=== PATIENT | female | born 1945 | race Caucasian/White ===

== ENCOUNTER 2018-01-06 20:26 | Inpatient (IN) | payer OTHER ==
[~2018-01-06] VITALS: Ht 170.2 cm; Wt 68.7 kg
[2018-01-06] MEDS ORDERED: SODIUM CHLORIDE 0.9% 500 ML IVB ONE (21:12)
[2018-01-06] MEDS ORDERED: HYDROmorphone HCL 2 MG/ML VL IV ONE (21:15)
[2018-01-06] MEDS ORDERED: ONDANSETRON HCL 4 MG/2 ML VIAL IV ONE (21:15)
[2018-01-06 22:08] LABS: Basophils # (auto) 0 uL; Eosinophils # (auto) 0.1 uL; Lymphocytes # (auto) 0.7 uL; Neutrophils # (auto) 2.8 uL; Platelet Count (auto) 163 10^3/uL (140-450); Red Blood Cells 4.41 10^6/uL (4.0-5.20)
[2018-01-06 22:09] LABS: Basophils % (auto) 0.9 % (0.0-2.0); Eosinophils % (auto) 2.4 % (0.0-7.0); Hematocrit 36.7 % (36.0-46.0); Hemoglobin 11.7 g/dL (12.2-16.2); Lymphocytes % (auto) 16.5 % (10.0-50.0); Mean Corpuscular Hemoglobin 26.6 pg (28.0-32.0); Mean Corpuscular Hgb Conc. 31.9 g/dL (32.0-36.0); Mean Corpuscular Volume 83.3 fL (80.0-100.0); Monocytes # (auto) 0.4 uL; Neutrophils % (auto) 70.2 % (37.0-80.0); Nucleated Red Blood Cells % 0.2 %
[2018-01-06 22:10] LABS: Red Cell Distribution Width 20.9 % (11.8-14.3)
[2018-01-06 22:20] LABS: INR 0.96 (0.9-1.15); Partial Thromboplastin Time 23.6 sec (23.78-33.04); Prothrombin Time 10.3 sec (9.27-12.13)
[2018-01-06 22:30] LABS: Albumin 3.2 g/dL (3.4-5.0); BUN/Creatinine Ratio 24.8; Bilirubin, Total 0.5 mg/dL (0.2-1.0); Calcium 8.7 mg/dL (8.5-10.1); Magnesium 2.1 mg/dL (1.6-2.6); Potassium 3.4 mmol/L (3.5-5.1); Total Protein 6.3 g/dL (6.4-8.2)
[2018-01-07] MEDS ORDERED: TEMAZEPAM 15 MG CAP PO ONE (01:30)
[2018-01-07] MEDS ORDERED: ONDANSETRON HCL 4 MG/2 ML VIAL IV ONE ×2 (02:00→08:45)
[2018-01-07] MEDS ORDERED: HYDROmorphone HCL 2 MG/ML VL IV ONE (02:00)
[2018-01-07] MEDS ORDERED: LORazepam 0.5 MG TAB PO PRN (04:15)
[2018-01-07] MEDS ORDERED: ACETAMINOPHEN 500 MG TAB PO PRN (04:15)
[2018-01-07] MEDS ORDERED: HYDROcodone-ACET 5/325MG TAB PO PRN (04:15)
[2018-01-07] MEDS ORDERED: cloNIDine HCL 0.1 MG TAB PO ONE (04:15)
[2018-01-07 07:54] LABS: Basophils # (auto) 0 uL; Eosinophils # (auto) 0.1 uL; Hemoglobin 9.9 g/dL (12.2-16.2); Lymphocytes # (auto) 0.6 uL; Monocytes # (auto) 0.3 uL; Platelet Count (auto) 120 10^3/uL (140-450)
[2018-01-07 07:57] LABS: Basophils % (auto) 1.4 % (0.0-2.0); Eosinophils % (auto) 3.6 % (0.0-7.0); Hematocrit 30.7 % (36.0-46.0); Lymphocytes % (auto) 24.7 % (10.0-50.0); Mean Corpuscular Hemoglobin 26.8 pg (28.0-32.0); Mean Corpuscular Hgb Conc. 32.3 g/dL (32.0-36.0); Mean Corpuscular Volume 82.8 fL (80.0-100.0); Monocytes % (auto) 11.4 % (0.0-12.0); Neutrophils # (auto) 1.5 uL; Neutrophils % (auto) 58.9 % (37.0-80.0); Nucleated Red Blood Cells % 0.1 %; Red Blood Cells 3.71 10^6/uL (4.0-5.20); White Blood Cell 2.6 10^3/uL (4.4-10.8)
[2018-01-07 08:09] LABS: Red Cell Distribution Width 20.3 % (11.8-14.3)
[2018-01-07 08:10] LABS: BUN/Creatinine Ratio 31.3; Calcium 7.9 mg/dL (8.5-10.1); Potassium 3.4 mmol/L (3.5-5.1)
[2018-01-07] MEDS ORDERED: ONDANSETRON HCL 4 MG/2 ML VIAL ONE (08:38)
[2018-01-07] MEDS: HYDROmorphone HCL 2 MG/ML VL IV PRN ×3 (08:44→21:45)
[2018-01-07 09:46] VITALS: BP 121/86
[2018-01-07] MEDS ORDERED: ONDA-101 PO (10:31)
[2018-01-07] MEDS ORDERED: HYDR-3546 OR (10:31)
[2018-01-07] MEDS ORDERED: DIAZ2TAB PO (10:31)
[2018-01-07] MEDS ORDERED: HYDR-4683 PO (10:31)
[2018-01-07] MEDS ORDERED: ASPI81TA27 PO (10:31)
[2018-01-07] MEDS ORDERED: HYDR2TAB58 PO (10:31)
[2018-01-07] MEDS ORDERED: CAR125T OR (10:31)
[2018-01-07] MEDS ORDERED: TEMA30CA PO (10:31)
[2018-01-07] MEDS ORDERED: SERT25TA84 PO (10:31)
[2018-01-07 10:47] LABS: Urine Bacteria NONE SEEN /hpf (None Seen); Urine Blood Negative /uL (Negative); Urine Specific Gravity 1.016 (1.001-1.035); Urine WBC 1 /hpf (0 - 5)
[2018-01-07 12:28] VITALS: BP 149/78
[2018-01-07] MEDS ORDERED: ONDANSETRON HCL 4 MG/2 ML VIAL IV PRN (15:00)
[2018-01-07] MEDS ORDERED: POTASSIUM CHL 20 Meq TABLET PO ONE (15:00)
[2018-01-07 16:10] VITALS: BP 147/88
[2018-01-07 22:00] VITALS: BP 151/80
[2018-01-07] MEDS ORDERED: cloNIDine HCL 0.1 MG TAB PO PRN (22:45)
[2018-01-07] MEDS ORDERED: CARVEDILOL 12.5 MG TAB PO ONE (23:15)
[2018-01-08] MEDS: TEMAZEPAM 15 MG CAP PO PRN ×2 (00:36→23:53)
[2018-01-08] MEDS: HYDROmorphone HCL 2 MG/ML VL IV PRN ×5 (01:25→23:52)
[2018-01-08 05:34] VITALS: BP 123/81
[2018-01-08 07:00] LABS: Mean Corpuscular Hemoglobin 27.4 pg (28.0-32.0); Mean Corpuscular Hgb Conc. 33.3 g/dL (32.0-36.0); Mean Corpuscular Volume 82.3 fL (80.0-100.0); Platelet Count (auto) 122 10^3/uL (140-450); Red Blood Cells 4.01 10^6/uL (4.0-5.20); White Blood Cell 3.8 10^3/uL (4.4-10.8)
[2018-01-08 07:06] LABS: Red Cell Distribution Width 20.5 % (11.8-14.3)
[2018-01-08 07:08] LABS: Basophils % (manual) 0 (0.0-2.0); Blast Cells 0; Myelocytes % 0; Promyelocytes % 0; Reactive Lymphocytes 0
[2018-01-08 07:14] LABS: BUN/Creatinine Ratio 23.8; Calcium 8.3 mg/dL (8.5-10.1)
[2018-01-08 07:52] LABS: Band Neutrophils % (manual) 1; Eosinophils % (manual) 9 (0-7); Lymphocytes % (manual) 18 (10.0-50.0); Metamyelocytes % 1; Monocytes % (manual) 11 (0-12)
[2018-01-08 08:38] VITALS: BP 141/85
[2018-01-08] MEDS: SERTRALINE HCL 50 MG TAB PO SCH (09:43)
[2018-01-08] MEDS: CARVEDILOL 12.5 MG TAB PO SCH ×2 (09:43→18:00)
[2018-01-08 12:37] VITALS: BP 172/98
[2018-01-08 16:27] VITALS: BP 105/66
[2018-01-08 20:00] VITALS: BP 105/66
[2018-01-09 04:52] VITALS: BP 151/76
[2018-01-09] MEDS: HYDROmorphone HCL 2 MG/ML VL IV PRN ×3 (06:15→16:50)
[2018-01-09 08:00] VITALS: BP 138/86
[2018-01-09] MEDS: CARVEDILOL 12.5 MG TAB PO SCH (08:43)
[2018-01-09] MEDS: SERTRALINE HCL 50 MG TAB PO SCH (11:11)
[2018-01-09 12:00] VITALS: BP 132/74
[2018-01-09 16:53] VITALS: BP 115/69
== END 2018-01-09 17:20 | disposition short-term general hospital (02) | DRG 535 ==
LOC: ER 20:26 → EDBD 20:26 → OVERFLOW 20:27 → WEST WING 01-07 08:58
PROVIDERS: ADMIT Nurse Practitioner Family; ATTEND Internal Medicine
DX: S72.141A Displaced intertrochanteric fracture of right femur, initial encounter for closed fracture (principal); N17.0 Acute kidney failure with tubular necrosis; C20 Malignant neoplasm of rectum; I10 Essential (primary) hypertension; I25.10 Atherosclerotic heart disease of native coronary artery without angina pectoris; K44.9 Diaphragmatic hernia without obstruction or gangrene; M19.90 Unspecified osteoarthritis, unspecified site; M47.816 Spondylosis without myelopathy or radiculopathy, lumbar region; F32.9 Major depressive disorder, single episode, unspecified; F41.9 Anxiety disorder, unspecified; B95.62 Methicillin resistant Staphylococcus aureus infection as the cause of diseases classified elsewhere; M85.80 Other specified disorders of bone density and structure, unspecified site; S39.91XA Unspecified injury of abdomen, initial encounter; Z75.1 Person awaiting admission to adequate facility elsewhere; W18.30XA Fall on same level, unspecified, initial encounter; I25.2 Old myocardial infarction; Z93.3 Colostomy status; Z95.1 Presence of aortocoronary bypass graft; Z95.5 Presence of coronary angioplasty implant and graft; Z98.82 Breast implant status; Y93.89 Activity, other specified; Y92.89 Other specified places as the place of occurrence of the external cause
CPT/HCPCS: 36415; 70450; 71045; 72125; 73502; 74176; 80048; 80053; 81001; 83735; 84484; 85007; 85025; 85027; 85610; 85730; 87081; 93005; 94761; 96361; 96374; 96375; 96376; A6257; J2405